=== PATIENT | female | born 1995 | race Caucasian/White ===

== ENCOUNTER 2016-07-09 15:29 | Emergency (ER) | payer OTHER ==
[2016-07-09 15:37] VITALS: BP 156/93
--- NOTE | 2016-07-11 17:24 | UC ---
Respiratory Complaint HPI - HPI Summary HPI Summary: Cough, sore throat and chest rattling at night, also not sure of last period wishing a test - History of Current Complaint Chief Complaint: UCRespiratory Stated Complaint: SORE THROAT, SINUS AND CHEST CONGESTION Time Seen by Provider: 07/09/16 15:48 Hx Obtained From: Patient Hx Last Menstrual Period: 05/25 ?: No Onset/Duration: Sudden Onset, Lasting Days, Still Present, Worse Since - last night Timing: Constant Severity Initially: Mild Severity Currently: Mild Pain Intensity: 0 Pain Scale Used: 0-10 Numeric Character: Cough: Nonproductive Aggravating Factors: Nothing Alleviating Factors: Nothing Associated Signs And Symptoms: Positive: Pleuritic Chest Pain, URI, Nasal Congestion - Allergies/Home Medications Allergies/Adverse Reactions: Allergies Allergy/AdvReac Type Severity Reaction Status Date / Time Amoxicillin Allergy Mild Rash Verified 09/03/15 12:42 Penicillins Allergy Mild Rash Verified 09/03/15 12:42 PMH/Surg Hx/FS Hx/Imm Hx Previously Healthy: No Endocrine History Of: Denies: Diabetes, Thyroid Disease, Hyperthyroidism, Hypothyroidism, Dyslipidemia Cardiovascular History Of: Reports: Cardiac Disorders - Has history of "rapid heart beat" which her primary care provider is monito Denies: Hypertension, Pacemaker/ICD, Myocardial Infarction, Congestive Heart Failure, Atrial Fibrillation, Deep Vein Thrombosis, Bleeding Disorders Respiratory History Of: Denies: COPD, Asthma, Bronchitis, Pneumonia, Pulmonary Embolism GI/ History Of: Denies: Gastroesophageal Reflux, Ulcer, Gastrointestinal Bleed, Gall Bladder Disease, Kidney Stones, Diverticulitis, Renal Disease, Urosepsis Neurological History Of: Denies: TIA, CVA, Dementia, Seizures, Migraine Psychological History Of: Reports: Anxiety Denies: Depression, Bipolar Disorder, Schizophrenia, Post Traumatic Stress Disorder Cancer History Of: Denies: Lung Cancer, Colorectal Cancer, Breast Cancer, Prostate Cancer, Cervical Cancer Other History Of: Negative For: HIV, Hepatitis B, Hepatitis C - Surgical History Surgical History: None - Family History Known Family History: Positive: None - Social History Occupation: Employed Full-time Lives: With Family Alcohol Use: Occasionally Substance Use Type: None Smoking Status (MU): Never Smoked Tobacco - Immunization History Vaccination Up to Date: Yes Review of Systems Constitutional: Negative Skin: Negative Eyes: Negative ENT: Sore Throat Respiratory: Cough Cardiovascular: Negative Gastrointestinal: Negative Genitourinary: Negative Motor: Negative Neurovascular: Negative Musculoskeletal: Negative Neurological: Negative Psychological: Negative All Other Systems Reviewed And Are Negative: Yes Physical Exam Triage Information Reviewed: Yes Appearance: Well-Appearing, No Pain Distress, Well-Nourished Vital Signs: Initial Vital Signs Temp 97.5 F 07/09/16 15:34 Pulse 97 07/09/16 15:34 Resp 18 07/09/16 15:34 BP 156/93 07/09/16 15:34 Pulse Ox 100 07/09/16 15:34 Vital Signs Reviewed: Yes Eye Exam: Normal Eyes: Positive: Conjunctiva Clear ENT Exam: Normal ENT: Positive: Normal ENT inspection, Hearing grossly normal, Pharynx normal, TMs normal. Negative: Nasal congestion, Nasal drainage, Trismus, Muffled/ hoarse voice Neck exam: Normal Neck: Positive: Supple, Nontender, No Lymphadenopathy Respiratory Exam: Normal Respiratory: Positive: Chest non-tender, Lungs clear, Normal breath sounds, No respiratory distress, No accessory muscle use Cardiovascular Exam: Normal Cardiovascular: Positive: RRR, No Murmur, Pulses Normal, Brisk Capillary Refill Abdominal Exam: Normal Abdomen Description: Positive: Nontender, No Organomegaly, Soft. Negative: CVA Tenderness (R), CVA Tenderness (L) Bowel Sounds: Positive: Present, Absent Musculoskeletal Exam: Normal Musculoskeletal: Positive: Strength Intact, ROM Intact, No Edema Neurological Exam: Normal Neurological: Positive: Alert, Muscle Tone Normal Psychological Exam: Normal Skin Exam: Normal UC Diagnostic Evaluation - Laboratory O2 Sat by Pulse Oximetry: 100 Respiratory Course/Dx - Course Course Of Treatment: Zithromax, prednisone, albuterol, increase fluids follow with pcp re-check prn - Differential Dx/Diagnosis Differential Diagnosis/HQI/PQRI: Bronchitis, CHF, Lower Resp Infection, Sinusitis Provider Diagnoses: Bronchititis Discharge - Discharge Plan Condition: Stable Disposition: HOME Prescriptions: Albuterol HFA INHALER* [Ventolin HFA Inhaler*] 2 puff INH Q4H PRN #1 mdi PRN Reason: cough Azithromycin TAB* [Zithromax TAB (Z-SHEMAR) 250 mg #6 tabs] 2 tab PO .TODAY, THEN 1 DAILY #1 shemar predniSONE TAB* [Deltasone TAB*] 20 mg PO DAILY #6 tab Patient Education Materials: Decongestant/Expectorant (By mouth), How to Use a Metered-Dose Inhaler (ED), Acute Bronchitis (ED) Referrals: Zohreh Sánchez MD [Primary Care Provider] - If Needed
== END 2016-07-09 16:05 | disposition home or self-care (01) ==
LOC: UCEAST 15:29
DX: J40 Bronchitis, not specified as acute or chronic (principal); Z88.0 Allergy status to penicillin; Z32.02 Encounter for pregnancy test, result negative
CPT/HCPCS: 81025; 99212; G0463

== ENCOUNTER 2016-09-04 19:14 | Emergency (ER) | payer OTHER ==
[2016-09-04 20:03] VITALS: BP 148/81
--- NOTE | 2016-09-04 21:12 | UC ---
Lower Extremity/Ankle HPI - HPI Summary HPI Summary: The patient comes in today for: 1. Left foot pain: Onset: 4 days ago. Palliative/provocative: Walking makes it worse as does pressing on the area. Quality: Ache Region: Lateral instep, dorsum Severity: 6/10 Time: Constant. Associated symptoms: Event: She was going down the steps and she mis-stepped and she heard a "crack." She has been icing it. Previous problems: None. Previous treatment: ice only. * - History of Current Complaint Chief Complaint: UCLowerExtremity Stated Complaint: LEFT FOOT PAIN Time Seen by Provider: 09/04/16 20:27 Hx Obtained From: Patient Hx Last Menstrual Period: 09/01/16 ?: No - Allergies/Home Medications Allergies/Adverse Reactions: Allergies Allergy/AdvReac Type Severity Reaction Status Date / Time Amoxicillin Allergy Mild Rash Verified 09/04/16 20:04 Penicillins Allergy Mild Rash Verified 09/04/16 20:04 PMH/Surg Hx/FS Hx/Imm Hx Previously Healthy: No Endocrine History Of: Denies: Diabetes, Thyroid Disease, Hyperthyroidism, Hypothyroidism, Dyslipidemia Cardiovascular History Of: Reports: Cardiac Disorders - Has history of "rapid heart beat" which her primary care provider is monito Denies: Hypertension, Pacemaker/ICD, Myocardial Infarction, Congestive Heart Failure, Atrial Fibrillation, Deep Vein Thrombosis, Bleeding Disorders Respiratory History Of: Denies: COPD, Asthma, Bronchitis, Pneumonia, Pulmonary Embolism GI/ History Of: Denies: Gastroesophageal Reflux, Ulcer, Gastrointestinal Bleed, Gall Bladder Disease, Kidney Stones, Diverticulitis, Renal Disease, Urosepsis Neurological History Of: Denies: TIA, CVA, Dementia, Seizures, Migraine Psychological History Of: Reports: Anxiety - No medications for this at this time. Denies: Depression, Bipolar Disorder, Schizophrenia, Post Traumatic Stress Disorder Cancer History Of: Denies: Lung Cancer, Colorectal Cancer, Breast Cancer, Prostate Cancer, Cervical Cancer Other History Of: Negative For: HIV, Hepatitis B, Hepatitis C, Anticoagulant Therapy - Surgical History Surgical History: None - Family History Known Family History: Positive: Cardiac Disease, Diabetes - Social History Occupation: Employed Full-time Alcohol Use: Weekly Substance Use Type: None Smoking Status (MU): Never Smoked Tobacco - Immunization History Vaccination Up to Date: Yes Review of Systems Constitutional: Negative Skin: Negative Eyes: Negative ENT: Negative Respiratory: Negative Cardiovascular: Negative Gastrointestinal: Negative Genitourinary: Negative All Other Systems Reviewed And Are Negative: Yes Physical Exam Triage Information Reviewed: Yes Appearance: Well-Appearing, No Pain Distress - while sitting., Well-Nourished Vital Signs: Initial Vital Signs Temp 97.9 F 09/04/16 19:59 Pulse 81 09/04/16 19:59 Resp 16 09/04/16 19:59 BP 148/81 09/04/16 19:59 Pulse Ox 98 09/04/16 19:59 Vital Signs Reviewed: Yes Eyes: Positive: Conjunctiva Clear. Negative: Discharge ENT: Positive: Hearing grossly normal. Negative: Pharyngeal erythema, Nasal congestion, Nasal drainage, TM bulging, TM dull, TM red, Tonsillar swelling, Tonsillar exudate Dental: Negative: Gross Decay/Caries @, Dental Fracture @ Neck: Positive: Supple, Nontender, No Lymphadenopathy. Negative: Nuchal Rigidity Respiratory: Positive: Lungs clear, No respiratory distress, No accessory muscle use. Negative: Crackles, Rhonchi Cardiovascular: Positive: RRR, No Murmur Abdomen Description: Positive: Nontender, No Organomegaly, Soft. Negative: Distended, Guarding Musculoskeletal: Positive: Strength Intact, ROM Intact, No Edema, Other: - Left foot: No ecchymosis. Hightower test: normal with no depression of the Achilles tendon depression. There is mild edema of the left lateral foot anterior to the ankle. There is no ankle tenderness of the malleoli or the Achilles tendon Neurological: Positive: Alert, Muscle Tone Normal Psychological: Positive: Age Appropriate Behavior, Consolable Skin: Negative: rashes, breakdown Diagnostics - Radiology No standard instances Xray Interpretation: No Acute Changes Radiology Interpretation Completed By: Radiologist Lower Extremity Course/Dx - Course Course Of Treatment: Patient told of the negative foot x-ray. She was told of the possibility of an AMRITA wrap and post-op shoe. She wanted to try it. - Differential Dx/Diagnosis Differential Diagnosis/HQI/PQRI: Contusion, Sprain, Strain Provider Diagnoses: Left foot pain/contusion tendonitis Discharge - Discharge Plan Condition: Stable Disposition: HOME Patient Education Materials: Foot Contusion (ED), Foot Sprain (ED) Referrals: Zohreh Sánchez MD [Primary Care Provider] - 1 Week (Please see your primary care provider in a week to see how well you are doing. If you get worse, please be seen sooner in the ER or through us.)
[2016-09-04] MEDS ORDERED: Naproxen TAB* 250 MG PO ONE (21:17)
--- NOTE | 2016-09-04 21:21 | RAD ---
Indication: Lateral LEFT foot pain post fall Tuesday morning. Comparison: None. Technique: AP, lateral, and oblique views LEFT foot. Report: No cortical disruption or suspicious trabecular irregularity to suggest fracture. Normal variant bipartite sesamoid at the medial head of the flexor hallucis brevis. Normal articular alignment and preserved joint spaces. Unremarkable soft tissue contours. IMPRESSION: No traumatic injury evident.
== END 2016-09-04 21:53 | disposition home or self-care (01) ==
LOC: UCEAST 19:14
DX: M79.672 Pain in left foot (principal); S90.32XA Contusion of left foot, initial encounter; X58.XXXA Exposure to other specified factors, initial encounter; Y93.89 Activity, other specified; Y92.9 Unspecified place or not applicable; M77.52 Other enthesopathy of left foot and ankle; Z88.0 Allergy status to penicillin
CPT/HCPCS: 99213; A9270-GY; G0463

== ENCOUNTER 2022-07-02 16:17 | Inpatient (IN) ==
[~2022-07-02 16:17] MED LIST: Buffered Lidocaine 1% SYRIN 1 ml INTRADERM ONE; Lactated Ringers 1000 ml BAG 1,000 ML IV ONE; Lactated Ringers 1000 ml BAG 1,000 ML IV SCH
[2022-07-02 17:24] LABS: ABS Monocytes 0.7 10^3/ul (0-0.8); ABS Neutrophils 10.3 10^3/ul (1.5-7.7); Eosinophil % 0.3 %; Hematocrit 37 % (35-47); Hemoglobin 12.7 g/dL (12.0-16.0); Mean Corpuscular HGB Conc 34 g/dL (31-36); Mean Corpuscular Hemoglobin 29 pg (27-31); Mean Corpuscular Volume 85 fL (80-97); Mean Platelet Volume 8.2 fL (7.4-10.4); Platelet Count 270 10^3/uL (150-450); Red Cell Distribution Width 14 % (10-15)
[2022-07-02 17:42] LABS: Urine Benzodiazepine Screen None Detected (None Detect); Urine Cannabinoids Screen None Detected (None Detect); Urine Opiates Screen None Detected (None Detect)
[2022-07-02 17:48] LABS: Urine Appearance Cloudy; Urine Bilirubin Negative (Negative); Urine Blood 2+ (Negative); Urine Color Yellow; Urine Glucose Negative (Negative); Urine Ketones Negative (Negative); Urine Nitrite Negative (Negative); Urine Protein Negative (Negative); Urine Specific Gravity 1.019 (1.002-1.030); Urine Urobilinogen Negative (Negative)
[2022-07-02 17:52] LABS: Urine Bacteria 1+ (Absent); Urine Red Blood Cell 2+(6-10/hpf) (Absent); Urine Squamous Epithelial Cell Present (Absent); Urine White Blood Cell Trace(0-5/hpf) (Absent)
[2022-07-02 17:55] LABS: Albumin 3.5 g/dL (3.2-5.2); Albumin/Globulin Ratio 1.1 (1-3); Creatinine, Serum 0.62 mg/dL (0.51-0.95); Globulin 3.3 g/dL (2-4); Potassium 4.1 mmol/L (3.5-5.0); Total Bilirubin 0.2 mg/dL (0.2-1.0); Total Protein 6.8 g/dL (6.4-8.9); Uric Acid 4.1 mg/dL (2.3-6.6); eGFR CKD-EPI 125.1 (>60)
[2022-07-02] MEDS ORDERED: Dinoprostone 10 MG VAG.SUPP VAGINAL ONE (18:01)
[2022-07-02] MEDS: Famotidine IV 10 MG/ML 2 ml VIAL (20 mg) IV SLOW PU SCH (23:00)
[2022-07-02] MEDS: Calcium Carb (TUMS) 500 mg CHEW TAB PO PRN (23:56)
[2022-07-03] MEDS: Famotidine IV 10 MG/ML 2 ml VIAL (20 mg) IV SLOW PU SCH ×2 (09:05→21:05)
[2022-07-03] MEDS ORDERED: miSOPROStol 100 mcg TAB PO SCH (11:00)
[2022-07-03] MEDS: Oxytocin in LR 20,000 MILLI.UNIT/1,000 ML BAG IV SCH (21:14)
[2022-07-04] MEDS ORDERED: Promethazine INJ(RESTRICTED) 25 MG/ML 1 ml VIAL IV ONE (00:07)
[2022-07-04] MEDS: Calcium Carb (TUMS) 500 mg CHEW TAB PO PRN ×3 (05:15→21:42)
[2022-07-04] MEDS: Famotidine IV 10 MG/ML 2 ml VIAL (20 mg) IV SLOW PU SCH ×2 (07:49→21:39)
[2022-07-04] MEDS: Oxytocin in LR 20,000 MILLI.UNIT/1,000 ML BAG IV SCH (11:13)
[2022-07-04] MEDS ORDERED: Buffered Lidocaine 1% SYRIN 1 ml ONE (12:57)
[2022-07-04] MEDS ORDERED: Oxymetazoline 0.05% NASAL SPR 15 ML BTL BOTH NARES PRN (18:57)
[2022-07-04] MEDS ORDERED: OBEPIDURAL (200 ML) 200 ML EPIDURAL ONE (23:02)
[2022-07-04] MEDS ORDERED: Bupivacaine 0.25% SDV PF 10 ML VIAL INJ ONE (23:03)
[2022-07-04] MEDS ORDERED: OBEPIDURAL (200 ML) 200 ML EPIDURAL SCH (23:45)
[2022-07-04] MEDS ORDERED: Phenylephrine 40 mcg/mL 10mL (400mcg) SYRINGE IV PUSH PRN ×2 (23:58)
[2022-07-04] MEDS ORDERED: Sodium Citrate/Citric Acid LIQ 15 ML UDC PO PRN (23:58)
[2022-07-05] MEDS ORDERED: Dibucaine 1% OINT 28.35 GM TUBE PR PRN (05:38)
[2022-07-05] MEDS ORDERED: Witch Hazel PAD JAR TOPICAL PRN (05:38)
[2022-07-05] MEDS ORDERED: Lactated Ringers 1000 ml BAG 1,000 ML IV SCH (06:00)
[2022-07-05] MEDS: Famotidine IV 10 MG/ML 2 ml VIAL (20 mg) IV SLOW PU SCH (11:32)
[2022-07-05] MEDS ORDERED: Lidocaine 1% VIAL 10 MG/ML VIAL 30 ML ONE (14:16)
[2022-07-05] MEDS: Calcium Carb (TUMS) 500 mg CHEW TAB PO PRN (22:33)
[2022-07-06] MEDS: Calcium Carb (TUMS) 500 mg CHEW TAB PO PRN ×3 (00:33→23:21)
[2022-07-06 06:14] LABS: ABS Eosinophils 0.2 10^3/ul (0-0.6); ABS Lymphocytes 2.7 10^3/ul (1.0-4.8); ABS Monocytes 0.8 10^3/ul (0-0.8); ABS Neutrophils 9.6 10^3/ul (1.5-7.7); Eosinophil % 1.4 %; Hematocrit 31 % (35-47); Hemoglobin 10.2 g/dL (12.0-16.0); Lymphocyte % 20.1 %; Mean Corpuscular HGB Conc 33 g/dL (31-36); Mean Corpuscular Hemoglobin 28 pg (27-31); Mean Corpuscular Volume 87 fL (80-97); Mean Platelet Volume 7.8 fL (7.4-10.4); Platelet Count 194 10^3/uL (150-450); Red Blood Count 3.61 10^6 /uL (3.70-4.87); Red Cell Distribution Width 14 % (10-15); White Blood Count 13.4 10^3/uL (3.5-10.8)
[2022-07-07 08:41] VITALS: BP 119/62
== END 2022-07-07 13:50 | disposition home or self-care (01) | DRG 560 ==
LOC: MCHOBOUT 16:17 → MCHOB 16:18
PROVIDERS: ADMIT Midwife; ATTEND Midwife